=== PATIENT | female | born 1985 | race Caucasian/White ===

== ENCOUNTER 2017-11-28 19:31 | Emergency (ER) | payer BC, OTHER ==
[2017-11-28 20:05] LABS: #Eosinphils 0.1 thou/uL (0.0-0.7); #Lymphocytes 2.3 thou/uL (1.20-3.40); #Monocytes 0.6 thou/uL (0.11-0.59); #Neutrophils 6.8 thou/uL (1.40-6.50); %Basophils 0.2 % (0.0-1.0); %Eosinophils 1.5 % (0.0-10.0); %Lymphocytes 23.7 % (21.0-51.0); %Monocytes 5.6 % (0.0-10.0); %Neutrophils 69.1 % (42.0-75.0); Hemoglobin 13.2 g/dL (12.0-16.0); Mean Corpuscular HGB CONC 34.8 g/dL (32.0-36.0); Mean Corpuscular Hemoglobin 31.6 pg (27.0-31.0); Mean Corpuscular Volume 90.8 fl (81.0-99.0); Mean Platelet Volume 7.2 fL (7.4-10.4); Platelet Count 258 thou/uL (130-400); RBC Distribution Width 11.3 % (11.5-14.5); Red Blood Cell (RBC) Count 4.17 mill/uL (4.20-5.40); White Blood Cell (WBC) Count 9.8 thou/uL (4.8-10.8)
[2017-11-28 21:03] LABS: Bilirubin Negative (Negative); Blood, Urine Moderate (Negative); Clarity CLEAR (Clear); Glucose, Urine (Dipstick) Negative (Negative); Leukocyte Small (Negative); Nitrite Negative (Negative); Protein, Urine (Dipstick) Negative (Neg-Trace); Specific Gravity, Urine 1.008 (1.002-1.036); Urobilinogen 0.2 mg/dL (0.2-1.0); pH, Urine 6.5 (5.0-9.0)
[2017-11-28 21:06] LABS: Bacteria/HPF None Seen HPF (None Seen); Hyaline Casts/LPF 0-3 HYALINE CAST LPF (0-3 Hyaline); Pathc Cast-AUWi Flag 0.14 (0-2.49); Squamous Epithelial 0-3 HPF (0-3)
--- NOTE | 2017-11-28 21:30 | ULT ---
ULTRASOUND PELVIS TRANSABDOMINAL WITH DOPPLER 11/28/17 HISTORY: Pelvic pain. COMPARISON: None. TECHNIQUE: Real time mendoza scale color doppler and spectral analysis of the pelvis was performed in a transabdomi nal approach. FINDINGS: Small cyst in the left ovary measuring 2.1 cm. The right ovary is not well seen. Single viable intra uterine with average ultrasound age of 12 week, 3 day. Estimated date of delivery 06/09/18 which is concordant with the clinical age. Biparietal diameter 12 week, 5 day, 1.8 cm. Head circumference 13 week, 0 day, 7.18 cm. Abdominal circumference 12 week, 2 day, 5.38 cm. Femur length 12 week, 0 day, 0.63 cm. Cervical length is 4.3 cm. Heart rate documented at 169 beats per minute. Placenta is anterior. Amniotic fluid is adequate. IMPRESSION: Normal single viable intrauterine . POS: MIKE
[2017-11-30 23:06] LABS: Chlamydia by PCR Not Detected (NotDetected); GC by PCR Not Detected (NotDetected)
== END 2017-11-28 23:38 | disposition home or self-care (01) ==
LOC: ERS 19:31
DX: O20.0 Threatened abortion (principal); O99.89 Other specified diseases and conditions complicating pregnancy, childbirth and the puerperium; R82.71 Bacteriuria; Z3A.12 12 weeks gestation of pregnancy; Z79.82 Long term (current) use of aspirin; Z79.01 Long term (current) use of anticoagulants
CPT/HCPCS: 36415; 76856; 81003; 81015; 84702; 85025; 86850; 86900; 86901; 87480; 87491; 87510; 87591; 87660; 93976

== ENCOUNTER 2018-05-30 19:43 | Inpatient (IN) | payer OTHER ==
[~2018-05-30 19:43] MED LIST: Bupivacaine 0.25% HCL 30 ML VIAL ONE
[2018-05-30] MEDS ORDERED: HYDROcodone/Acetaminophen 5/325 mg Tablet PO PRN ×2 (19:52)
[2018-05-30] MEDS ORDERED: Lidocaine 1% (PF) 30 ML VIAL SC PRN (19:52)
[2018-05-30] MEDS ORDERED: Promethazine HCl 25 MG/ML VIAL IM PRN (19:52)
[2018-05-30] MEDS ORDERED: Diphenoxylate HCl/Atropine Tablet PO PRN ×2 (19:52)
[2018-05-30] MEDS ORDERED: Acetaminophen 500 MG TAB PO PRN (19:52)
[2018-05-30] MEDS ORDERED: Misoprostol 200 MCG TAB PR PRN (19:52)
[2018-05-30] MEDS ORDERED: Ibuprofen 800 MG TAB PO PRN (19:52)
[2018-05-30] MEDS ORDERED: Misoprostol 100 MCG TAB VAG SCH (19:52)
[2018-05-30] MEDS ORDERED: Ondansetron PF 4 MG/2 ML Vial IVP PRN (19:52)
[2018-05-30] MEDS ORDERED: NS w/ Oxytocin 10 units 500 ML IV SCH (19:52)
[2018-05-30] MEDS ORDERED: Zolpidem Tartrate 5 MG TAB PO PRN (19:52)
[2018-05-30] MEDS ORDERED: Butorphanol Tartrate 1 MG/ML VIAL SLOW IVP PRN (19:52)
[2018-05-30] MEDS ORDERED: NS / Oxytocin 40 units/1000ml 1,000 ML IV PRN (19:52)
[2018-05-30 20:41] VITALS: BMI 29.6
[2018-05-30] MEDS: Lactated Ringer's 1,000 ML IV SCH (20:45)
[2018-05-30] MEDS ORDERED: Docusate 100 MG CAP PO PRN (21:00)
[2018-05-30 21:03] LABS: Hemoglobin 12.4 g/dL (12.0-16.0); Mean Corpuscular HGB CONC 33.5 g/dL (32.0-36.0); Mean Corpuscular Hemoglobin 31.9 pg (27.0-31.0); Mean Corpuscular Volume 95.4 fL (78.0-98.0); Mean Platelet Volume 10.2 fL (7.4-10.4); Platelet Count 197 thou/uL (130-400); RBC Distribution Width 12.2 % (11.5-14.5); Red Blood Cell (RBC) Count 3.89 mill/uL (4.20-5.40); White Blood Cell (WBC) Count 9.4 thou/uL (4.8-10.8)
[2018-05-30 21:45] LABS: Syphilis Antibody Nonreactive (Nonreactive); Syphilis Antibody Index 0.03 S/CO (<1.00 Non-Reactive)
[2018-05-30 23:20] LABS: HBSAg Index 0.19 S/CO (0-0.99); Hep B Surf Ag Non-Reactive S/CO (NonReactive)
[2018-05-31] MEDS: Lactated Ringer's 1,000 ML IV SCH ×3 (02:51→10:33)
[2018-05-31] MEDS ORDERED: Fentanyl 4 mcg/Bup 0.1% Cadd 100 ML ONE ×2 (08:54→15:40)
[2018-05-31] MEDS ORDERED: Promethazine HCl 25 MG/ML VIAL IM PRN (09:28)
[2018-05-31] MEDS ORDERED: Ondansetron PF 4 MG/2 ML Vial IVP PRN ×2 (09:28→16:29)
[2018-05-31] MEDS ORDERED: Lactated Ringer's 500 ML IV PRN (09:28)
[2018-05-31] MEDS ORDERED: diphenhydrAMINE 50 MG/ML VIAL IVP PRN (09:28)
[2018-05-31] MEDS ORDERED: Eucerin (Mineral Oil/Petrolatum,White) 30 gm Jar TOP PRN (09:28)
[2018-05-31] MEDS ORDERED: Naloxone HCl 0.4 mg/ml Vial IVP PRN ×2 (09:28)
[2018-05-31] MEDS ORDERED: ePHEDrine/0.9% NaCl/PF SYRINGE 50 mg/10 ml SLOW IVP PRN (09:28)
[2018-05-31] MEDS ORDERED: Acetaminophen 325 MG TAB PO PRN (09:28)
[2018-05-31] MEDS ORDERED: Communication Order-Pharmacy FS SCH (09:30)
[2018-05-31] MEDS ORDERED: Fentanyl 4 mcg/Bupivacaine 0.1% Cassette 100 ML EPIDURAL SCH (09:30)
[2018-05-31] MEDS ORDERED: Lidocaine 1% (PF) 30 ML VIAL ONE (15:33)
[2018-05-31] MEDS ORDERED: NS / Oxytocin 40 units/1000ml 1,000 ML ONE (15:33)
[2018-05-31] MEDS ORDERED: Benzocaine/Menthol 20-0.5% 60 ML CAN TOP PRN (16:29)
[2018-05-31] MEDS ORDERED: Lanolin Ointment 7 GM TUBE TOP PRN (16:29)
[2018-05-31] MEDS ORDERED: Adacel (T-DAP) 0.5 ML VIAL IM ONE (16:29)
[2018-05-31] MEDS ORDERED: Milk Of Magnesia 30 ML UDCUP PO PRN (16:29)
[2018-05-31] MEDS ORDERED: Misoprostol 200 MCG TAB VAG PRN (16:29)
[2018-05-31] MEDS ORDERED: Bisacodyl 10 MG SUPP PR PRN (16:29)
[2018-05-31] MEDS ORDERED: diphenhydrAMINE 25 MG CAP PO PRN (16:29)
[2018-05-31] MEDS ORDERED: NS / Oxytocin 40 units/1000ml 1,000 ML IV SCH (16:30)
[2018-05-31] MEDS ORDERED: Acetaminophen/Codeine 30-300mg Tablet PO PRN ×2 (19:39→19:46)
[2018-05-31] MEDS ORDERED: Zolpidem Tartrate 5 MG TAB PO PRN (19:46)
[2018-05-31] MEDS: Ferrous Sulfate 325 MG TAB PO SCH (20:43)
[2018-05-31] MEDS: Docusate Calcium (SURFAK) 240 MG CAP PO SCH (21:07)
[2018-05-31] MEDS ORDERED: Enoxaparin Sodium 30 MG/0.3 ML SYRINGE SC SCH (22:30)
[2018-06-01] MEDS: Ibuprofen 800 MG TAB PO SCH ×4 (00:45→21:48)
[2018-06-01 06:19] LABS: Hemoglobin 10.6 g/dL (12.0-16.0); Mean Corpuscular HGB CONC 33.4 g/dL (32.0-36.0); Mean Corpuscular Hemoglobin 32.6 pg (27.0-31.0); Mean Corpuscular Volume 97.5 fL (78.0-98.0); Mean Platelet Volume 9.3 fL (7.4-10.4); Platelet Count 160 thou/uL (130-400); RBC Distribution Width 12.2 % (11.5-14.5); Red Blood Cell (RBC) Count 3.25 mill/uL (4.20-5.40); White Blood Cell (WBC) Count 15.8 thou/uL (4.8-10.8)
[2018-06-01] MEDS: Ferrous Sulfate 325 MG TAB PO SCH ×2 (09:38→18:41)
[2018-06-01] MEDS: Prenatal Vitamin 1 TAB PO SCH (09:39)
[2018-06-01] MEDS: Docusate Calcium (SURFAK) 240 MG CAP PO SCH ×2 (09:39→21:17)
[2018-06-01] MEDS ORDERED: Enoxaparin Sodium 30 MG/0.3 ML SYRINGE SC SCH (21:00)
[2018-06-02] MEDS: Ibuprofen 800 MG TAB PO SCH (05:38)
[2018-06-02] MEDS: Ferrous Sulfate 325 MG TAB PO SCH (08:45)
[2018-06-02] MEDS: Docusate Calcium (SURFAK) 240 MG CAP PO SCH (09:02)
[2018-06-02] MEDS: Prenatal Vitamin 1 TAB PO SCH (09:02)
[2018-06-02 09:05] VITALS: BP 123/73
[2018-06-02 09:14] VITALS: TEMP 98
== END 2018-06-02 10:15 | disposition home or self-care (01) | DRG 806 ==
LOC: L&D 19:43 → 3SW 05-31 19:59
PROVIDERS: ADMIT Obstetrics & Gynecology; ATTEND Obstetrics & Gynecology
PROC: 3E0P7VZ Introduction of Hormone into Female Reproductive, Via Natural or Artificial Opening (ICD-10-PCS; 2018-05-30)
PROC: 10E0XZZ Delivery of Products of Conception, External Approach (ICD-10-PCS; principal; 2018-05-31)
PROC: 0HQ9XZZ Repair Perineum Skin, External Approach (ICD-10-PCS; 2018-05-31)
PROC: 10907ZC Drainage of Amniotic Fluid, Therapeutic from Products of Conception, Via Natural or Artificial Opening (ICD-10-PCS; 2018-05-31)
DX: O99.12 Other diseases of the blood and blood-forming organs and certain disorders involving the immune mechanism complicating childbirth (principal); D68.69 Other thrombophilia; Z37.0 Single live birth; O43.893 Other placental disorders, third trimester; O70.0 First degree perineal laceration during delivery; Z3A.38 38 weeks gestation of pregnancy; Z88.0 Allergy status to penicillin; Z79.01 Long term (current) use of anticoagulants
CPT/HCPCS: 36415; 51702; 85027; 86780; 86850; 86900; 86901; 87340; J0595; J1650; J2001; S0020

== ENCOUNTER 2018-06-27 18:33 | Observation (INO) | payer OTHER ==
[2018-06-27] MEDS ORDERED: Ondansetron PF 4 MG/2 ML Vial ONE (20:58)
[2018-06-27] MEDS ORDERED: Morphine 10 MG/ML VIAL ONE (20:58)
--- NOTE | 2018-06-27 21:11 | ULT ---
RIGHT UPPER QUADRANT ULTRASOUND: 06/27/18 COMPARISON: None. HISTORY: Right upper quadrant pain. TECHNIQUE: Multiplanar mendoza scale sonographic imaging of the right upper quadrant provided. FINDINGS: The imaged pancreatic parenchyma appears grossly unremarkable. No focal liver lesion is identified. The common bile duct measures 6 mm, upper limits of normal. There is no gallbladder wall thickening. There are a few small stones within the gallbladder lumen an d there is mild gallbladder sludge. No pericholecystic fluid. The mash preparatory operator reports a positive Murp hy's sign. Right kidney measures 10.1 cm craniocaudal dimension and demonstrates no evidence for stone, hydronep hrosis, or mass lesion. There is minimal prominence of the biliary ducts in the region of the merlin hepatis. IMPRESSION: Punctate gallstones are noted. The mash preparatory operator reports a positive Chisholm's sign. This combination of findings may be on the basis of acute cholecystitis in the proper clinical setting. However, no peric holecystic fluid or gallbladder wall thickening is seen. Clinical correlation is thus required. There is mild prominence of the biliary system as well. Correlation with LFTs advised. POS: ALEXANDRA
[2018-06-27] MEDS ORDERED: Ondansetron PF 4 MG/2 ML Vial IVP PRN (22:43)
[2018-06-27] MEDS ORDERED: Morphine 4 MG/ML VIAL SLOW IVP PRN (22:43)
[2018-06-27] MEDS: Sodium Chloride 0.9% 1,000 ML IV SCH (23:48)
[2018-06-28 01:30] VITALS: BMI 21.9
[2018-06-28] MEDS: Sodium Chloride 0.9% 1,000 ML IV SCH (07:30)
[2018-06-28] MEDS ORDERED: Ondansetron PF 4 MG/2 ML Vial ONE (09:51)
[2018-06-28] MEDS ORDERED: PROPOFOL 200 MG/20 ML VIAL ONE (09:51)
[2018-06-28] MEDS ORDERED: Glycopyrrolate 0.2 MG/ML 5 ML SYRINGE ONE (09:51)
[2018-06-28] MEDS ORDERED: Ketorolac Tromethamine 30 MG/ML VIAL ONE (09:51)
[2018-06-28] MEDS ORDERED: Dexamethasone 20 MG/5 ML VIAL ONE (09:51)
[2018-06-28] MEDS ORDERED: Lidocaine 1% PF 5 ML VIAL ONE (09:51)
[2018-06-28] MEDS ORDERED: CEFAZOLIN 2 GM/50 ML BAG ONE (13:49)
[2018-06-28] MEDS ORDERED: Bupivacaine/Epinephrine 0.25% 30 ML VIAL ONE (14:24)
[2018-06-28] MEDS ORDERED: Iothalamate Meglumine 60% 50 ML VIAL FS ONE (14:24)
[2018-06-28] MEDS ORDERED: Fentanyl 250 MCG/5 ML VIAL ONE (14:30)
[2018-06-28] MEDS ORDERED: Midazolam HCl 2 mg/2 ml Vial ONE (14:30)
[2018-06-28] MEDS ORDERED: Famotidine/PF 20 mg/2ml Vial ONE (15:01)
[2018-06-28] MEDS ORDERED: Promethazine HCl 25 MG/ML VIAL IM PRN ×2 (15:15→16:15)
[2018-06-28] MEDS ORDERED: Promethazine HCl 25 MG/ML VIAL SLOW IVP PRN ×2 (15:15→16:15)
[2018-06-28] MEDS ORDERED: Ondansetron HCl/PF 4 MG/2 ML Vial IVP PRN ×2 (15:15→16:15)
[2018-06-28] MEDS ORDERED: Meperidine HCl/PF 25 MG/ML VIAL SLOW IVP PRN ×2 (15:15→16:15)
--- NOTE | 2018-06-28 15:44 | HP ---
CHIEF COMPLAINT: Right upper quadrant abdominal pain. HISTORY OF PRESENT ILLNESS: The patient is a very pleasant 32-year-old white female. Yesterday, in the afternoon, she developed severe right upper quadrant abdominal pain. She denied any prior history of similar symptoms. She had nausea, but no vomiting. She noted the pain radiated both to the epigastrium and through to her back. She presented to [facility]. She underwent evaluation with laboratory and radiologic studies there. Her laboratory studies revealed that her white blood cell count was normal at 10.1 with a hemoglobin of 16.0. Her chemistry profile revealed essentially normal electrolytes. Her creatinine was a little bit elevated at 1.27. She had no prior results of this to compare for trend. Her AST was slightly elevated at 52 and other liver function tests were normal. Her lipase was a little elevated at 101. She stabilized with resolution of her abdominal discomfort. She was discharged from the emergency room in [place]. She was concerned enough about her symptoms, however, that she presented to the emergency room here at [place], where a gallbladder ultrasound was performed. This revealed several small gallstones. There is no definite ductal dilatation. I was contacted and she was admitted to my service for further management. PAST MEDICAL HISTORY: Essentially unremarkable. She did have her third child about a month ago. She was on several medications including Lovenox during her to ensure viability as she had had several prior miscarriages. PAST SURGICAL HISTORY: Left hand cyst. MEDICATIONS: Lovenox and progesterone up until about a month ago and none currently. ALLERGIES: SHE MAY HAVE AN ALLERGY TO AUGMENTIN, BUT SHE IS NOT CERTAIN. PRIMARY CARE PHYSICIAN: Dr. Byrd. BANKING PIN ADJUSTER: Dr. Pineda. PERSONAL SOCIAL HISTORY: She is with three children. Lives in [place]. She does not smoke. Drinks alcohol occasionally. She does not work outside of the house currently. PHYSICAL EXAMINATION: VITAL SIGNS: Her temperature is 98.0, pulse 70, and blood pressure 123/86. GENERAL: Well-developed, well-nourished, pleasant white female, resting in bed, in no acute distress. She is alert and oriented x3. HEAD, EYES, EARS, NOSE, THROAT: Unremarkable. NECK: Supple without mass or tenderness. LUNGS: Clear to auscultation throughout. CARDIAC: Regular rate and rhythm without murmur. ABDOMEN: Soft. She currently has no focal tenderness in the right upper quadrant, epigastrium. EXTREMITIES: Unremarkable. ASSESSMENT: The patient with symptomatic cholelithiasis and possible mild early pancreatitis related to her gallstones. I recommend laparoscopic cholecystectomy with cholangiogram. I have discussed the operation in detail with the patient as well as potential risks. She understands, and agrees to proceed with surgery at this time. Job ID: [id number]
--- NOTE | 2018-06-28 16:06 | RAD ---
INTRAOPERATIVE CHOLANGIOGRAM: Date: 06-28-18 Comparison: None. History: Cholecystectomy. FINDINGS: Two images from a intraoperative cholangiogram provided. The opacified cystic duct, common bile duct, and intrahepatic biliary ducts are mildly prominent and demonstrate no internal filling defect. Chol ecystectomy clips are present. IMPRESSION: No filling defect identified on intraoperative cholangiogram. POS: ARCHANA
[2018-06-28] MEDS ORDERED: Meperidine HCl/PF 25 MG/ML VIAL ONE (16:14)
[2018-06-28 16:53] VITALS: BP 139/88; TEMP 97.5
--- NOTE | 2018-06-29 12:39 | OP ---
DATE OF PROCEDURE: 06/28/2018 PREOPERATIVE DIAGNOSES: Cholelithiasis, mild pancreatitis, and early cholecystitis. POSTOPERATIVE DIAGNOSES: Cholelithiasis, mild pancreatitis, and early cholecystitis. OPERATION PERFORMED: Laparoscopic cholecystectomy with intraoperative cholangiogram. ANESTHESIA: General endotracheal. INDICATIONS: The patient is a 32-year-old white female. She is 1 month . She had developed a severe episode of right upper quadrant abdominal pain, radiating through to her back. Laboratory studies revealed elevation of her lipase level. Ultrasound revealed cholelithiasis. She is taken to the operating room at this time for laparoscopic cholecystectomy with cholangiogram. DESCRIPTION OF OPERATION: Informed consent was obtained, the patient was taken to the operating room where general endotracheal anesthesia was obtained with the patient in the supine position. The abdomen was prepped with ChloraPrep and draped in sterile fashion. Local anesthetic was infiltrated with 0.25% Marcaine with epinephrine. An 11 mm infraumbilical incision was created through which a Veress needle was passed into the peritoneal cavity and pneumoperitoneum was established using carbon dioxide up to a pressure of 15 mmHg. An 11 mm trocar port was passed through the same incision and laparoscopic camera was passed through this port. Under direct vision, I placed 3 additional 5 mm right upper quadrant ports in the usual fashion. Attention was turned to the gallbladder. This was neither inflamed nor distended. It was grasped and retracted in a cephalad direction. The infundibulum was grasped and retracted laterally and inferiorly. Careful dissection was carried at the apex of the gallbladder to identify the cystic duct and the cystic artery. The artery was divided between clips leaving 2 on the side to remain within the abdomen. Attention was turned to the duct. This duct appeared larger than typical. It was clipped proximally and a ductotomy was created. At the location of the ductotomy, with mild retrograde pressure on the distal cystic duct, I expressed a stone from within the duct. I could express no other stones either with retrograde manipulation of the cystic duct or common duct. A cholangiogram was obtained using the Taut cholangiocath. This revealed normal filling of the cystic duct, common duct, and emptying into the duodenum. There was no evidence of filling defects. The cholangiocath was removed and the duct was doubly clipped and divided. The gallbladder was then dissected off the gallbladder fossa using electrocautery. Hemostasis was maintained. The gallbladder was removed through the umbilical incision and the fascia was closed with 0 Vicryl suture using a GraNee needle. Right upper quadrant was thoroughly irrigated and all irrigant was aspirated. All ports and instruments were removed under direct vision. Pneumoperitoneum was carefully evacuated. 0.25% Marcaine with epinephrine was infiltrated at each of the port sites. Skin edges were approximated with 4-0 Monocryl subcuticular suture. Dermabond was placed externally. There were no complications. The patient tolerated the procedure well and was taken to recovery room in stable condition. Job ID: [id number]
== END 2018-06-28 19:50 | disposition home or self-care (01) ==
LOC: ERS 18:33 → SURG B 22:06
PROVIDERS: ADMIT Specialist; ATTEND Specialist
PROC: 0FT44ZZ Resection of Gallbladder, Percutaneous Endoscopic Approach (ICD-10-PCS; principal; 2018-06-28)
PROC: BF131ZZ Fluoroscopy of Gallbladder and Bile Ducts using Low Osmolar Contrast (ICD-10-PCS; 2018-06-28)
DX: K81.1 Chronic cholecystitis (principal); K85.90 Acute pancreatitis without necrosis or infection, unspecified; Z88.0 Allergy status to penicillin
CPT/HCPCS: 47532; 76705; 88304; 96361; 96374; 96375; G0378; J0131; J1100; J1885; J2001; J2175; J2250; J2270; J2405; J2704; J3010; Q9961; S0028